=== PATIENT | female | born 1935 | race Caucasian/White ===

== ENCOUNTER 2023-10-28 10:57 | Inpatient (IN) | payer OTHER ==
[2023-10-28] MEDS ORDERED: ONDANSETRON 4 MG/2 ML VIAL ONE (11:31)
[2023-10-28] MEDS ORDERED: NA CHLORIDE 0.9% 1,000 ML ONE (11:32)
[2023-10-28] MEDS ORDERED: MORPHINE 4 MG/ML SYR ONE (11:32)
[2023-10-28 11:48] LABS: Absolute Basophils 0.1 K/uL (0-0.5); Absolute Eosinophils 0.5 K/uL (0-0.5); Absolute Lymphocytes (CBC) 1.1 K/uL (0.7-4.9); Absolute Monocytes 0.8 K/uL (0.1-1.3); Absolute Neutrophil 7.3 K/uL (1.8-8.0); Basophils % 0.7 % (0-1.3); Eosinophils % 5.3 % (0-4.4); Hematocrit 36.8 % (36.0-45.0); Hemoglobin 12.4 g/dL (12.0-15.0); Lymphocytes % 11.1 % (15.3-44.8); MCH 31.7 pg (27.0-35.0); MCHC 33.7 g/dL (32.0-36.0); MCV 94.1 fL (80-100); MPV 7.1 fL (7.6-11.3); Monocytes % 8.3 % (3.3-12.3); Neutrophils % 74.6 % (41.7-73.7); Nucleated Red Blood Cells % 0.1 % (0-0); Platelets 326 thou/uL (152-406); RBC Red Blood Cell Count 3.91 M/uL (3.86-4.86); Red Cell Distribution Width 14.2 % (12.1-15.2)
[2023-10-28 11:56] LABS: Albumin 3.4 g/dL (3.4-5.0); Alkaline Phosphatase 52 U/L (45-117); Anion Gap 9.6 mEq/L (5.0-15.0); BUN Blood Urea Nitrogen 23 mg/dL (7-18); Bicarbonate 27 mEq/L (21-32); Bilirubin Total 0.7 mg/dL (0.2-1.0); Globulin 3.3 g/dL (2.3-3.5); Glomerular Filtration Rate 86 ml/min (=/>90); Glucose Level 118 mg/dL (74-106); Lipase 14 U/L (13-75); Potassium 3.6 mEq/L (3.5-5.1); Protein, Total 6.7 g/dL (6.4-8.2); Sodium Level 138 mEq/L (136-145)
[2023-10-28 12:01] LABS: ALT/SGPT < 14 U/L (13-56); AST/SGOT < 10 U/L (15-37)
[2023-10-28 12:47] LABS: Specific Gravity 1.027 (1.005-1.030); Sqamous Epithelial <5 /HPF (None Seen); Urine Bacteria None Seen /HPF (<20); Urine Bilirubin NEGATIVE (Negative); Urine Blood Negative (Negative); Urine Clarity Clear (Clear); Urine Color Light-Yellow (Yellow); Urine Culture Reflex Order NOT NEEDED; Urine Glucose NEGATIVE (Negative); Urine Ketones NEGATIVE (Negative); Urine Microscopic Reflex YN ORDER UMIC; Urine Mucus Slight /HPF (None Seen); Urine Nitrite NEGATIVE (Negative); Urine Protein NEGATIVE (Negative); Urine RBC None Seen /HPF (None Seen); Urine Urobilinogen Normal (Normal); Urine WBC <5 /HPF (<5)
--- NOTE | 2023-10-28 13:05 | RAD REPORT ---
EXAM DESCRIPTION: CT - Abdomen Pelvis W Contrast - 10/28/2023 12:21 pm CLINICAL HISTORY: ABD PAIN COMPARISON: No comparisons TECHNIQUE: Thin cut axial CT imaging of the abdomen and pelvis was performed following intravenous a dministration of iodinated contrast. Multiplanar reformats were generated and reviewed. All CT scans are performed using dose optimization technique as appropriate and may include automated exposure control or mA/KV adjustment according to patient size. FINDINGS: Moderate right pneumothorax, layering small fluid component. Underlying subsegmental atele ctasis. Mildly displaced right 8th-10th rib fractures. The liver, spleen, adrenal glands, and pancreas show no suspicious findings. Subcapsular right inferi or liver lobe 2 cm hypoattenuating lesion with some marginal enhancement, may represent an atypical c yst or hemangioma. Gallbladder and biliary tree are also without suspicious finding. Prominent calibe r of the main pancreatic duct, measuring up to 5 mm. Symmetric renal function is seen with no hydronephrosis or suspicious renal mass. Multiple left renal cysts, largest at the left interpolar region measuring 2.6 cm. No dilated bowel loops or bowel wall thickening. Colonic diverticulosis. No free air, free fluid or i nflammatory stranding. No hernia, mass or bulky lymphadenopathy. The urinary bladder is without signi ficant finding. No suspicious bony findings. IMPRESSION: Moderate right hemopneumothorax. Mildly displaced right eighth-tenth rib fractures. Prominent caliber of the main pancreatic duct, measuring up to 5 mm, with no clear etiology identifie d. Correlate with pancreatic enzyme and bilirubin levels, and consider additional evaluation via a ga stroenterology consultation. Other incidental findings as above. The findings were communicated to Kwaku Hoskins on 10/28/2023 at 12:56 hours.
--- NOTE | 2023-10-28 14:36 | RAD REPORT ---
EXAM DESCRIPTION: CT - CTHCSPWOC - 10/28/2023 1:40 pm CLINICAL HISTORY: fall COMPARISON: Abdomen Pelvis W Contrast dated 10/28/2023; Thorax Wo Con dated 10/28/2023 TECHNIQUE: Axial thin cut noncontrast CT images of the head were obtained. Axial thin cut noncontrast CT images of the cervical spine were obtained. Multiplanar reformatted images were generated and reviewed. All CT scans are performed using dose optimization technique as appropriate and may include automated exposure control or mA/KV adjustment according to patient size. FINDINGS: CT HEAD WITHOUT CONTRAST: No acute hemorrhage, hydrocephalus or extra-axial collection is identified.No areas of brain edema or midline shift. The paranasal sinuses and mastoids are clear.The calvarium is intact. CT CERVICAL SPINE WITHOUT CONTRAST: No fracture or subluxation. Mild multilevel cervical spine degenerative changes, contributing to mild right neural foraminal narrowing at C4-5. No prevertebral soft tissues swelling is identified. Mode rate pneumothorax at the right apex. IMPRESSION: No acute traumatic intracranial or cervical spine findings. Right apical moderate pneumothorax. Cervical spine degenerative changes as above.
--- NOTE | 2023-10-28 14:47 | RAD REPORT ---
EXAM DESCRIPTION: CT - Thorax Wo Con - 10/28/2023 1:42 pm CLINICAL HISTORY: BLUNT CHEST TRAUMA COMPARISON: Head C Spine Mpr Wo Con dated 10/28/2023; Abdomen Pelvis W Contrast dated 10/28/2023 TECHNIQUE: Axial thin cut images of the chest were obtained without IV contrast. Multiplanar reforma ts were generated and reviewed. All CT scans are performed using dose optimization technique as appropriate and may include automated exposure control or mA/KV adjustment according to patient size. FINDINGS: Subsegmental dependent atelectasis in throughout the 3 right lung lobes. No mass or infilt rate in the lung parenchyma. Moderate right pneumothorax. Layering right effusion or pneumothorax com ponent. Trace pericardial effusion. No abnormal mediastinal or hilar masses or lymphadenopathy seen. No signi ficant aortic or pulmonary artery findings. Assessment is limited in the absence of IV contrast. No chest wall mass or abnormal axillary lymphadenopathy. Evaluation of the solid abdominal structures reveals no suspicious findings. Displaced right 8-10 rib fractures. The ninth rib demonstrates 2 fractures along posterior and latera l aspects. IMPRESSION: Displaced right 8-10 rib fractures. The ninth rib demonstrates 2 fractures along posteri or and lateral aspects. Moderate right pneumothorax. Layering right effusion or pneumothorax component. Trace pericardial effusion.
--- NOTE | 2023-10-28 15:03 | ER ---
Nurse's Notes [facility] Name: Latonya Ramirez Age: 88 yrs Sex: Female : 1935 Arrival Date: 10/28/2023 Time: 10:57 Bed 5 Private MD: Diagnosis: Other pneumothorax;Multiple fractures of ribs, right side Presentation: 10/27 11:17 Chief complaint: EMS states: toned out to patient home for fall 1 night ago - pain to ld1 RUQ, right elbow scratch. Denies blood thinners. Negative LOC. Coronavirus screen: At this time, the client does not indicate any symptoms associated with coronavirus-19. Ebola Screen: No symptoms or risks identified at this time. Initial Sepsis Screen: Does the patient meet any 2 criteria? No. Patient's initial sepsis screen is negative. Does the patient have a suspected source of infection? No. Patient's initial sepsis screen is negative. Risk Assessment: Do you want to hurt yourself or someone else? Patient reports no desire to harm self or others. Onset of symptoms was October 28, 2023. 11:17 Method Of Arrival: EMS: [facility] ld1 11:17 Acuity: FLORIAN 3 ld1 Triage Assessment: 11:18 General: Appears in no apparent distress. comfortable, Behavior is calm, cooperative, ld1 appropriate for age. Pain: Complains of pain in right upper quadrant Pain does not radiate. Pain currently is 8 out of 10 on a pain scale. Quality of pain is described as throbbing, Pain began suddenly, Is continuous. EENT: No signs and/or symptoms were reported regarding the EENT system. Neuro: Level of Consciousness is awake, alert, obeys commands, Oriented to person, place, time, situation, Appropriate for age. Cardiovascular: Capillary refill < 3 seconds Patient's skin is warm and dry. Respiratory: Airway is patent Respiratory effort is even, unlabored. GI: Abdomen is round non-distended, Reports upper abdominal pain. : No signs and/or symptoms were reported regarding the genitourinary system. Derm: No signs and/or symptoms reported regarding the dermatologic system. Musculoskeletal: No signs and/or symptoms reported regarding the musculoskeletal system. Historical: - Allergies: 11:18 No Known Allergies; ld1 - PMHx: 11:18 Hypertensive disorder; CVA; HLD; ld1 - Immunization history:: Adult Immunizations up to date. - Infectious Disease History:: Denies. - Social history:: Smoking status: Patient denies any tobacco usage or history of. Screenin:19 [facility] ED Fall Risk Assessment (Adult) History of falling in the last 3 months, ld1 including since admission Yes- single mechanical fall (1 pt) Confusion or Disorientation No (0 pts) Intoxicated or Sedated No (0 pts) Impaired Gait No (0 pts) Mobility Assist Device Used No (0 pt) Altered Elimination No (0 pt) Score/Fall Risk Level 0 - 2 = Low Risk Oriented to surroundings, Maintained a safe environment, Educated pt \T\ family on fall prevention, incl call for assistance when getting out of bed, Assessed \T\ reinforced patient's understanding of fall precautions, Provided non-skid footwear, Hourly rounding (assess needs \T\ fall precautionary measures) done, Used ambulatory aids as needed (educated on \T\ assisted with), Used gait belt as appropriate. Abuse screen: Denies threats or abuse. Denies injuries from another. Nutritional screening: No deficits noted. Tuberculosis screening: No symptoms or risk factors identified. Assessment: 11:19 Reassessment: See triage assessment. ld1 13:10 Reassessment: Patient appears in no apparent distress at this time. No changes from ld1 previously documented assessment. Patient and/or family updated on plan of care and expected duration. Pain level reassessed. 14:00 Reassessment: Patient appears in no apparent distress at this time. No changes from ld1 previously documented assessment. Patient and/or family updated on plan of care and expected duration. Pain level reassessed. 15:00 Reassessment: Patient appears in no apparent distress at this time. No changes from ld1 previously documented assessment. 16:15 Reassessment: Patient appears in no apparent distress at this time. Patient and/or ld1 family updated on plan of care and expected duration. Pain level reassessed. 16:43 Reassessment: Patient appears in no apparent distress at this time. No changes from ld1 previously documented assessment. Patient and/or family updated on plan of care and expected duration. Pain level reassessed. Vital Signs: 11:17 BP 171 / 76; Pulse 77; Resp 18; Temp 97.8(TE); Pulse Ox 92% on R/A; Weight 51.26 kg; ld1 Height 5 ft. 3 in. ; Pain 8/10; 11:29 BP 143 / 82; Pulse 73; Resp 18; Pulse Ox 93% on R/A; ld1 13:10 BP 148 / 57; Pulse 60; Resp 18; Pulse Ox 100% on R/A; ld1 14:45 Pulse 68; Resp 18; Pulse Ox 100% on R/A; ld1 15:30 BP 142 / 79; Pulse 65; Resp 18; Pulse Ox 99% on 10 lpm Non-rebreather mask; ld1 16:40 BP 149 / 72; Pulse 72; Resp 18; Pulse Ox 99% on 10 lpm Non-rebreather mask; ld1 11:17 Body Mass Index 20.02 (51.26 kg, 160.02 cm) ld1 11:17 Pain Scale: Adult ld1 ED Course: 11:05 Patient arrived in ED. eb 11:08 Beatriz Thao PA-C is PHCP. sb4 11:08 Kwaku Hoskins MD is Attending Physician. sb4 11:17 Nidhi Pelaez RN is Primary Nurse. ld1 11:18 Triage completed. ld1 11:18 Arm band placed on right wrist. ld1 11:19 Patient has correct armband on for positive identification. Placed in gown. Bed in low ld1 position. Call light in reach. Side rails up X2. color television console monitor on. Pulse ox on. NIBP on. Door closed. Noise minimized. Warm blanket given. 11:19 No provider procedures requiring assistance completed. ld1 11:29 Inserted saline lock: 20 gauge in right wrist, using aseptic technique. Blood collected.ld1 11:37 CBC with Diff Sent. ld1 11:37 CMP Sent. ld1 11:37 Lipase Sent. ld1 12:23 CT Abd/Pelvis - IV Contrast Only In Process Unspecified. EDMS 13:42 Head C Spine MPR Wo Con CT In Process Unspecified. EDMS 13:[address] In Process Unspecified. EDMS 15:01 Yonny Buchanan is Hospitalizing Provider. sb4 15:41 Chest Single View XRAY In Process Unspecified. EDMS 16:45 Patient admitted, IV remains in place. ld1 Administered Medications: 11:37 Drug: NS 0.9% IV 1000 ml IV at 1 bolus Per protocol; 1000 mL bolus Route: IV; Rate: 1 ld1 bolus; Site: right forearm; 11:37 Drug: morphine IVP or IV 4 mg IVP once over 4 mins Route: IVP; Infused Over: 4 mins; ld1 Site: right forearm; 11:37 Drug: Ondansetron IVP 4 mg IVP once; over 2 minutes Route: IVP; Site: right forearm; ld1 Medication: 16:46 VIS not applicable for this client. ld1 Outcome: 15:02 Decision to Hospitalize by Provider. sb4 16:45 Admitted to ICU accompanied by nurse, via stretcher, room 1, Report called to renetta Concepcion RN 16:45 Condition: stable 16:45 Instructed on the need for admit, 16:46 Patient left the ED. [email or web address] Signatures: Dispatcher [employer] EDMonse Dominique Lauren, RN RN ld1 Beatriz Thao PA-C PA-C sb4
--- NOTE | 2023-10-28 15:03 | EDPHYS ---
Physician Documentation [facility] Name: Latonya Ramirez Age: 88 yrs Sex: Female : 1935 Arrival Date: 10/28/2023 Time: 10:57 Bed 5 Private MD: ED Physician Kwaku Hoskins HPI: 10/27 11:21 This 88 yrs old Female presents to ER via EMS with complaints of Abdominal Pain. sb4 11:21 The patient presents with abdominal pain in the right upper quadrant. Onset: The sb4 symptoms/episode began/occurred yesterday. The symptoms do not radiate. Associated signs and symptoms: none. The patient has not experienced similar symptoms in the past. The patient has not recently seen a physician. 11:21 patient reports pain in her RUQ/ right abdomen that began last night. daughter states sb4 that she did fall yesterday and scraped her elbow and gusman but doesn't think she hurt her side. denies any fever, n/v/d. Historical: - Allergies: 11:18 No Known Allergies; ld1 - PMHx: 11:18 Hypertensive disorder; CVA; HLD; ld1 - Immunization history:: Adult Immunizations up to date. - Infectious Disease History:: Denies. - Social history:: Smoking status: Patient denies any tobacco usage or history of. ROS: 11:21 Constitutional: Negative for fever, chills, and weight loss, sb4 11:21 Abdomen/GI: Positive for abdominal pain, 11:21 All other systems are negative, Exam: 11:22 Head/Face: Normocephalic, atraumatic. Eyes: Extra-ocular motions intact. Periorbital sb4 areas with no swelling, redness, or edema. Cardiovascular: Regular rate and rhythm with a normal S1 and S2. Respiratory: Lungs have equal breath sounds bilaterally, clear to auscultation and percussion. No rales, rhonchi or wheezes noted. No increased work of breathing, no retractions or nasal flaring. 11:22 Constitutional: The patient appears in no acute distress, alert, awake, 11:22 Abdomen/GI: Inspection: abdomen appears normal, Palpation: soft, mild abdominal tenderness, in the right upper quadrant and right lower quadrant, 11:22 Skin: injury, skin tear right elbow, Vital Signs: 11:17 BP 171 / 76; Pulse 77; Resp 18; Temp 97.8(TE); Pulse Ox 92% on R/A; Weight 51.26 kg; ld1 Height 5 ft. 3 in. ; Pain 8/10; 11:29 BP 143 / 82; Pulse 73; Resp 18; Pulse Ox 93% on R/A; ld1 13:10 BP 148 / 57; Pulse 60; Resp 18; Pulse Ox 100% on R/A; ld1 14:45 Pulse 68; Resp 18; Pulse Ox 100% on R/A; ld1 15:30 BP 142 / 79; Pulse 65; Resp 18; Pulse Ox 99% on 10 lpm Non-rebreather mask; ld1 16:40 BP 149 / 72; Pulse 72; Resp 18; Pulse Ox 99% on 10 lpm Non-rebreather mask; ld1 11:17 Body Mass Index 20.02 (51.26 kg, 160.02 cm) ld1 11:17 Pain Scale: Adult ld1 MDM: 11:08 Patient medically screened. sb4 15:01 Data reviewed: vital signs, nurses notes, EMS record, lab test result(s), EKG, sb4 radiologic studies, I have discussed the patient's presentation/case with the attending Emergency Department Physician; and as a result, I will admit patient. Consideration of Admission/Observation Patient was admitted/placed on observation. Management of patient was discussed with the following: Digital Sales Executive: Dr. Yates, agrees to consult. Historians other than the Patient: Daughter/Son: daughter. Counseling: I had a detailed discussion with the patient and/or guardian regarding the historical points, exam findings, and any diagnostic results supporting the discharge/admit diagnosis, lab results, radiology results, the need for further work-up and treatment in the hospital. 10/27 11:15 Order name: CBC with Diff; Complete Time: 11:50 4 10/27 11:15 Order name: CMP; Complete Time: 12:02 sb4 10/27 11:15 Order name: Lipase; Complete Time: 12:02 sb4 10/27 11:15 Order name: Urinalysis w/ reflexes; Complete Time: 12:47 sb4 10/27 11:15 Order name: CT Abd/Pelvis - IV Contrast Only; Complete Time: 13:08 sb4 10/27 12:56 Order name: Head C Spine MPR Wo Con CT; Complete Time: 14:37 sb4 10/27 12:56 Order name: Chest Wo Con CT; Complete Time: 14:49 sb4 10/27 14:57 Order name: Chest Single View XRAY; Complete Time: 16:22 sb4 10/27 15:41 Order name: Chest Single View EDMS 10/27 11:15 Order name: IV Saline Lock; Complete Time: 11:29 sb4 10/27 11:15 Order name: Labs collected and sent; Complete Time: 11:29 sb4 Administered Medications: 11:37 Drug: NS 0.9% IV 1000 ml IV at 1 bolus Per protocol; 1000 mL bolus Route: IV; Rate: 1 ld1 bolus; Site: right forearm; 11:37 Drug: morphine IVP or IV 4 mg IVP once over 4 mins Route: IVP; Infused Over: 4 mins; ld1 Site: right forearm; 11:37 Drug: Ondansetron IVP 4 mg IVP once; over 2 minutes Route: IVP; Site: right forearm; ld1 Disposition: 18:08 Co-signature as Attending Physician, Kwaku Hoskins MD I reviewed the patient's care rn provided by the Advanced Practice Provider and agree with the diagnosis and treatment plan. Disposition Summary: 10/28/23 15:02 Hospitalization Ordered Notes: Hospitalization Status: Inpatient Admission sb4 Provider: Yonny Buchanan Location: Intensive Care Unit sb4 Condition: Fair sb4 Problem: new sb4 Symptoms: are unchanged sb4 Bed/Room Type: Standard sb4 Room Assignment: 1-(10/28/23 16:04) eb Diagnosis - Other pneumothorax sb4 - Multiple fractures of ribs, right side sb4 Forms: - Medication Reconciliation Form sb4 - SBAR form sb4 - Leadership Thank You Letter sb4 Critical care time excluding procedures: 15:12 Critical care time: Bedside Care: 15 minutes, Consultation: 15 minutes, Family sb4 Intervention: 5 minutes. Total time: 35 minutes Signatures: Dispatcher [employer] Kwaku Hammond MD MD rn Botello, Elizabeth eb Sims, Lauren, RN RN ld1 Beatriz Thao PA-C PADrew sb4 Corrections: (The following items were deleted from the chart) 16:04 15:02 sb4 eb
--- NOTE | 2023-10-28 15:53 | P.HP ---
Certification for Inpatient Patient admitted to: Inpatient With expected LOS: >2 Midnights Patient will require the following post-hospital care: None Practitioner: I am a practitioner with admitting privileges, knowledge of patient current condition, hospital course, and medical plan of care. 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 Sometime on the night of the patient apparently had fallen out of bed, on the morning the her daughter came to check on her and found her lying in the bed with blood on the bed and her right elbow. Throughout the day she complained of right-sided flank pain but declined going to the hospital at that time. Her pain worsened in severity and for that reason he came to the hospital, she denies any difficulty breathing whatsoever. Patient was evaluated in the emergency department her labs were unremarkable, CT of the chest showed displaced right 8 through 10 rib fractures. The ninth rib demonstrates 2 fractures along the posterior and lateral aspects. Moderate right pneumothorax. Layering right effusion or pneumothorax component, trace pericardial effusion. Patient was breathing well on room air satting in the high 90s to 100%, general surgery was consulted and as patient has no difficulty breathing her sats are within normal limits plan is for conservative measures, admission to ICU with nonrebreather and serial chest x-rays. Patient/family unsure what led to the fall overnight on that night, small abrasion noted to right elbow as well. Patient be admitted to the ICU for pneumothorax, rib fractures. Discussed CODE STATUS at length, patient would not want resuscitation but she is okay with chest tubes and intubation in an bartolome gency related to her pneumothorax. - Past Medical/Surgical History -: CVA affecting left eye -: Hypertension -: Hypothyroidism -: RLS/insomnia -: Anxiety -: Asthma -: Bilateral mastectomy Psychosocial/ Personal History: Patient and her live at home with her daughter - Family History Mother -: Heart disease, Hypertension, Cancer - Social History Smoking Status: Former smoker Alcohol use: No CD- Drugs: No Caffeine use: No Place of Residence: Home Review of Systems 10-point ROS is otherwise unremarkable Cardiovascular: Chest Pain Gastrointestinal: Abdominal Pain Physical Examination - Physical Exam General: Alert, In no apparent distress, Oriented x3 HEENT: Atraumatic, PERRLA, EOMI Neck: Supple, 2+ carotid pulse no bruit, No LAD Respiratory: Normal air movement, Diminished (Right-sided) Cardiovascular: Regular rate/rhythm, Normal S1 S2 Gastrointestinal: Normal bowel sounds, No tenderness Musculoskeletal: No tenderness Integumentary: No rashes, Other (Skin tear noted to right elbow) Neurological: Normal gait, Normal speech, Normal strength at 5/5 x4 extr, Normal tone, Normal affect - Studies Laboratory Data (last 24 hrs) 10/28/23 10/28/23 11:27 11:27 WBC 9.80 Hgb 12.4 Hct 36.8 Plt Count 326 Sodium 138 Potassium 3.6 BUN 23 H Creatinine 0.60 Glucose 118 H Total Bilirubin 0.7 AST < 10 L ALT < 14 Alkaline Phosphatase 52 Lipase 14 Assessment and Plan - Plan Assessment: Moderate right pneumothorax Right 8-10 rib fractures Multiple falls Hypertension Hypothyroidism RLS/insomnia Anxiety Plan: Moderate right pneumothorax Right 8-10 rib fractures Patient was satting well on room air, denies any shortness of breath at this time Will hold off on chest tube at this time, serial chest x-rays ordered Case discussed with general surgery, general surgery following Repeat chest x-ray 8 PM and in the morning Continue with nonrebreather for now As needed pain medications Multiple falls Was stabilized from the standpoint of pneumothorax will consult PT Hypertension Hypothyroidism RLS/insomnia Anxiety Continue home medications once verified DVT PPX: Lovenox Code status: DNR-okay with chest tube/intubation Discharge Plan: Home Plan to discharge in: Greater than 2 days - Advance Directives Does patient have a Living Will: Yes Does patient have a Durable POA for Healthcare: No - Code Status/Comfort Care Code Status Assessed: Yes (DNR) Critical Care: No Time Spent Managing Pts Care (In Minutes): 70
[2023-10-28] MEDS ORDERED: ONDANSETRON 4 MG/2 ML VIAL IV PRN (16:10)
[2023-10-28] MEDS ORDERED: ZOLPIDEM TARTRATE 5 MG TABLET PO PRN (16:10)
[2023-10-28] MEDS ORDERED: ACETAMINOPHEN 325 MG TABLET PO PRN (16:10)
--- NOTE | 2023-10-28 16:13 | RAD REPORT ---
EXAM DESCRIPTION: Anya Single View10/28/2023 3:39 pm CLINICAL HISTORY: PNEUMOTHORAX COMPARISON: No comparisons TECHNIQUE: Portable AP view of the chest. FINDINGS: Moderate right pneumothorax, with 3.5 cm apical pleural separation. Bilateral streaky opac ities suggesting atelectasis, more so at the right base. No sizable effusion. The cardiomediastinal c ontours are unremarkable. IMPRESSION: Moderate right pneumothorax as above.
[2023-10-28] MEDS ORDERED: Levofloxacin500mg IV 500 MG/100 ML BAG IV SCH (19:00)
[2023-10-28] MEDS ORDERED: Levofloxacin 750mg IV 750 MG/150 ML BAG IV SCH (19:00)
[2023-10-28] MEDS: MORPHINE 4 MG/ML SYR IV PRN (19:49)
[2023-10-28] MEDS: Levofloxacin500mg IV 500 MG/100 ML BAG IV ONE (19:52)
--- NOTE | 2023-10-28 20:27 | RAD REPORT ---
EXAM DESCRIPTION: RADChest Single View10/28/2023 8:13 pm CLINICAL HISTORY: eval right pneumothorax COMPARISON: Chest Single View dated 10/28/2023 TECHNIQUE: Portable AP view of the chest. FINDINGS: Right moderate pneumothorax, stable in volume. Atelectatic changes bilaterally are stable. No sizable effusion. Right ninth mildly displaced rib fracture is again noted. The cardiomediastinal contours are unremarkable. IMPRESSION: Stable right moderate pneumothorax.
[2023-10-28] MEDS: clonazePAM 0.5 MG TAB PO PRN (20:33)
[2023-10-28] MEDS: GABAPENTIN 100 MG CAP PO SCH (20:33)
[2023-10-28] MEDS: DULERA 100/5 (MOMETASONE/FORMOTEROL) INHALER IH SCH (21:00)
[2023-10-29] MEDS ORDERED: CEFAZOLIN 1 GM in NA CHLORIDE 0.9% 50 ML IVPB SCH (01:00)
[2023-10-29] MEDS: HYDROCODONE/APAP 5/325 MG TAB PO PRN (03:25)
[2023-10-29 06:01] VITALS: BMI 19.2
[2023-10-29 06:58] LABS: Absolute Basophils 0.1 K/uL (0-0.5); Absolute Eosinophils 0.5 K/uL (0-0.5); Absolute Lymphocytes (CBC) 0.9 K/uL (0.7-4.9); Absolute Monocytes 0.9 K/uL (0.1-1.3); Absolute Neutrophil 8.5 K/uL (1.8-8.0); Basophils % 0.6 % (0-1.3); Eosinophils % 4.8 % (0-4.4); Hematocrit 34.3 % (36.0-45.0); Hemoglobin 11.5 g/dL (12.0-15.0); Lymphocytes % 7.9 % (15.3-44.8); MCH 32.1 pg (27.0-35.0); MCHC 33.7 g/dL (32.0-36.0); MCV 95.5 fL (80-100); MPV 7.3 fL (7.6-11.3); Monocytes % 8.3 % (3.3-12.3); Neutrophils % 78.4 % (41.7-73.7); Nucleated Red Blood Cells % 0.4 % (0-0); Platelets 282 thou/uL (152-406); RBC Red Blood Cell Count 3.59 M/uL (3.86-4.86); Red Cell Distribution Width 14.2 % (12.1-15.2)
[2023-10-29 07:25] LABS: Albumin/Globulin Ratio 0.9 (1.1-1.8); Alkaline Phosphatase 49 U/L (45-117); Anion Gap 7.9 mEq/L (5.0-15.0); BUN Blood Urea Nitrogen 21 mg/dL (7-18); Bicarbonate 26 mEq/L (21-32); Bilirubin Total 0.6 mg/dL (0.2-1.0); Globulin 3.2 g/dL (2.3-3.5); Glomerular Filtration Rate 89 ml/min (=/>90); Glucose Level 95 mg/dL (74-106); Potassium 3.9 mEq/L (3.5-5.1); Protein, Total 6.2 g/dL (6.4-8.2); Sodium Level 138 mEq/L (136-145)
[2023-10-29 07:26] LABS: ALT/SGPT < 14 U/L (13-56); AST/SGOT < 10 U/L (15-37)
--- NOTE | 2023-10-29 08:35 | RAD REPORT ---
EXAM DESCRIPTION: RAD - Chest Single View - 10/29/2023 6:38 am CLINICAL HISTORY: Eval right pneumo Chest pain. COMPARISON: Chest Single View dated 10/28/2023; Chest Single View dated 10/28/2023; Thorax Wo Con date d 10/28/2023; Head C Spine Mpr Wo Con dated 10/28/2023 FINDINGS: Portable technique limits examination quality. Moderate right-sided pneumothorax persists, without significant change since 10/28/2023 prior study. Emphysematous changes are present with scarring in the right lung base. The heart is mildly enlarged in size. IMPRESSION: Stable moderate size right-sided pneumothorax since 10/28/2023.
[2023-10-29] MEDS: THYROID 30 MG TAB PO SCH (08:42)
[2023-10-29] MEDS: lisinopriL 20 MG TAB PO SCH (08:43)
[2023-10-29] MEDS: ENOXAPARIN 40 MG/0.4 ML SQ SCH (08:43)
[2023-10-29] MEDS: DULERA 100/5 (MOMETASONE/FORMOTEROL) INHALER IH SCH ×2 (09:00→21:09)
--- NOTE | 2023-10-29 09:40 | P.PN ---
Date of Service: 10/29/23 Subjective: Doing ok, still C/O right flank/rib pain ROS: 10 point ROS as noted above, otherwise negative Physical exam GEN: Alert, oriented, NAD HEENT: Normal conjunctiva, sclera anicteric CV: Regular rate and rhythm, no edema Pulm: Nonlabored respirations on NRB ABD: Soft, nontender, nondistended MSK: No joint tenderness Integumentary: No rashes Neuro: Normal speech, normal affect Vitals reviewed Assessment: Moderate right pneumothorax Right 8-10 rib fractures Multiple falls Hypertension Hypothyroidism RLS/insomnia Anxiety Plan: Moderate right pneumothorax Right 8-10 rib fractures Patient was satting well on room air, denies any shortness of breath at this time Will hold off on chest tube at this time, serial chest x-rays ordered Case discussed with general surgery, general surgery following Daily CXR Continue with nonrebreather for now As needed pain medications Multiple falls Was stabilized from the standpoint of pneumothorax will consult PT Hypertension Hypothyroidism RLS/insomnia Anxiety Continue home medications once verified DVT PPX: Lovenox Code status: DNR-okay with chest tube/intubation Discharge Plan: Home Plan to discharge in: Greater than 2 days Time Spent Managing Pts Care (In Minutes): 35 <Gelacio Page - Last Filed: 10/29/23 09:40> Patient seen and examined. Plan of care discussed Gelacio Page. Case discussed with Dr. Yates. Serial chest x-rays shows stable pneumothorax. Incentive spirometry Cautious analgesics as needed to avoid oversedation. Pulmonary consult. Supplemental oxygen as needed. PT evaluation. <akila austin - Last Filed: 10/29/23 17:20>
[2023-10-29] MEDS: POTASSIUM CL SA 10 MEQ TAB PO ONE (10:09)
--- NOTE | 2023-10-29 15:00 | CON ---
Date of Consultation: 10/29/2023 Reason For Service: Pneumothorax, right side. History Of Present Illness: This is the case of an 88-year-old patient brought by the family member with the chief complaint of fall. This happened about 3 days ago. When the family saw her, the only thing they can see was just the right elbow bruises. Yesterday afternoon, she complained of more pa in, so she was brought to the ER, found to have multiple rib fractures and also a pneumothorax. At t hat moment, she has no shortness of breath and no difficulty breathing. The CAT scan was done. X-ra y was done. There is about 3 rib fractures 8 to 10. No major bruises in that area. Otherwise, she is comfortable. She is oriented x3. She has no other discomfort as long as she just does not move. Surgical consult was obtained. Past Medical History: CVA, hypertension, hypothyroidism, insomnia, anxiety, asthma. Past Surgical History: Include bilateral mastectomy, I am not sure exactly the reason for it, althou gh we suspect probably it was cancer, I have to talk to the daughter to get clarify that. Social History: She does not smoke. She does not drink alcohol. Family History: Includes hypertension, heart disease, and cancer unknown. Physical Examination: Vital Signs: Stable. General: Patient is awake and alert, in no distress. Responding, oriented x3. HEENT: Pupils are equal and reactive. Anicteric. Neck: Supple. No JVD. Chest: Bilateral breath sounds. Tenderness over the 8 to 10 ribs on the right side, but no crepitus , no bruises, no lacerations. No flail chest. Abdomen: Soft and depressible. No guarding or rebound. No peritoneal signs. Pelvis: Stable. Extremities: Full range of motion. Dorsalis pedis pulses present. Radial artery pulses present. Neurologic: Oriented x3. History of CVA. Rectal: Deferred. Breasts: As above. Pelvic: Deferred. Laboratory Data: Blood work: WBC count is 9.8 with the hemoglobin of 12.4, and platelets of 326. S odium is 138, bicarb 27, glucose 118, lipase 14. CAT scan of the abdomen and pelvis, head, C-spine, and chest shows a mildly displaced 8 to 10 right rib fractures, moderate-sized pneumothorax as descri bed by radiologist. Once again, clarification of a hemo was requested, but that is in the conclusion , I believe it is a typo. That was clarified right now. Head and cervical CT shows no acute traumat ic intracranial or cervical spine. Once again, right apical pneumothorax, degenerative changes in th e cervical spine. Assessment: This is an 88-year-old patient about 3 days ago, fell. She does not recall that she had been dizzy. It is just a trip as per person, was brought yesterday, found to have a pneumothorax, b ut no symptoms other than pain on palpation on the rib cage area. Patient informed about the options of observation versus the chest tube. Obviously, she preferred a conservative treatment. Patient w as evaluated again today. We discussed with her few options right now. We put her in the ICU for ob servation and check H and H. She is still with good breathing and bilateral breath sounds. No short ness of breath. No chest pain. Hemoglobin seems to be, as expected, stable, platelets of 288. The x-ray repeated cervical spine shows stable pneumothorax. Plan: We discussed with the patient the risks and benefits of chest tube placement. After discussin g with that, she preferred to continue conservative treatment. She understands that if by any chance clinically or radiographically she deteriorates, the benefits, alternatives, and risks of chest tube placement were explained to the patient which include, but not limited to, infection, bleeding, robert ge to adjacent structures, hemothorax, pneumothorax, empyema, GA, and even . She is stable now in the ICU. There is a plan for transfer to move her to the floor and if they do so, I explained to the staff to even on the floor have the chest tube tray and a chest tube available, in case an emerge ncy triggers, we can do that at bedside without having to be looking around the hospital for the ches t tube and they understood that part. Right now, she has bilateral breath sounds and no JVD. As par t of the treatment, also we can consult a Pulmonary service and get their input from the nontraumatic standpoint how to better approach this without having to put a chest tube per patient's request. We will check with them as soon as they become available tomorrow. WAYNE/AVINASH Voice ID: [id number] Report ID: [id number]
[2023-10-29] MEDS: Levofloxacin 250mg IV 250 MG/50 ML BAG IV SCH (19:13)
[2023-10-29] MEDS ORDERED: DULERA 100/5 (MOMETASONE/FORMOTEROL) INHALER IH SCH (21:00)
--- NOTE | 2023-10-30 07:03 | RAD REPORT ---
EXAM DESCRIPTION: RAD - Chest Single View - 10/30/2023 6:14 am CLINICAL HISTORY: Eval right pneumo COMPARISON: Chest Single View dated 10/29/2023; Chest Single View dated 10/28/2023; Chest Single View dated 10/28/2023; Thorax Wo Con dated 10/28/2023 FINDINGS: Lines: None. Lungs: Scarring in the right and left mid lung. No focal airspace disease. Pleural: Decrease in size of the right-sided pneumothorax which is small to moderate. Cardiac: The heart size is within normal limits. Mediastinum: Within normal limits. Bones: Right-sided rib fractures better demonstrated on CT. Other: None IMPRESSION: Mild decrease in size of the now small to moderate right-sided pneumothorax.
[2023-10-30 08:31] LABS: Absolute Eosinophils 0.1 K/uL (0-0.5); Absolute Lymphocytes (CBC) 0.7 K/uL (0.7-4.9); Absolute Monocytes 0.7 K/uL (0.1-1.3); Absolute Neutrophil 7.3 K/uL (1.8-8.0); Basophils % 0.2 % (0-1.3); Eosinophils % 1.5 % (0-4.4); Hematocrit 37.2 % (36.0-45.0); Hemoglobin 12.5 g/dL (12.0-15.0); Lymphocytes % 7.4 % (15.3-44.8); MCH 31.9 pg (27.0-35.0); MCHC 33.6 g/dL (32.0-36.0); MPV 7.4 fL (7.6-11.3); Monocytes % 8.2 % (3.3-12.3); Neutrophils % 82.7 % (41.7-73.7); Platelets 317 thou/uL (152-406); RBC Red Blood Cell Count 3.91 M/uL (3.86-4.86); Red Cell Distribution Width 13.6 % (12.1-15.2)
[2023-10-30 08:51] LABS: Albumin 3.1 g/dL (3.4-5.0); Albumin/Globulin Ratio 0.9 (1.1-1.8); Alkaline Phosphatase 60 U/L (45-117); BUN Blood Urea Nitrogen 16 mg/dL (7-18); Bicarbonate 27 mEq/L (21-32); Bilirubin Total 0.9 mg/dL (0.2-1.0); Globulin 3.5 g/dL (2.3-3.5); Glomerular Filtration Rate 92 ml/min (=/>90); Glucose Level 122 mg/dL (74-106); Protein, Total 6.6 g/dL (6.4-8.2); Sodium Level 136 mEq/L (136-145)
[2023-10-30 08:53] LABS: ALT/SGPT < 14 U/L (13-56); AST/SGOT < 10 U/L (15-37)
--- NOTE | 2023-10-30 10:33 | P.PN ---
Date of Service: 10/30/23 Subjective: Doing ok, still C/O right flank/rib pain Feels pain meds are helping ROS: 10 point ROS as noted above, otherwise negative Physical exam GEN: Alert, oriented, NAD HEENT: Normal conjunctiva, sclera anicteric CV: Regular rate and rhythm, no edema Pulm: Nonlabored respirations on NC at 2L ABD: Soft, nontender, nondistended MSK: No joint tenderness Integumentary: No rashes Neuro: Normal speech, normal affect Vitals reviewed Assessment: Moderate right pneumothorax Right 8-10 rib fractures Multiple falls Hypertension Hypothyroidism RLS/insomnia Anxiety Plan: Moderate right pneumothorax Right 8-10 rib fractures Patient was satting well on room air, denies any shortness of breath at this time CXR shows some improvement in pneumothorax, now mild-mod Case discussed with general surgery, general surgery following as well as pulm Daily CXR Continue with NC at 2L for now As needed pain medications Multiple falls PT consulted/eval today Hypertension Hypothyroidism RLS/insomnia Anxiety Continue home medications once verified DVT PPX: Lovenox Code status: DNR-okay with chest tube/intubation Discharge Plan: Home Plan to discharge in: Greater than 2 days Time Spent Managing Pts Care (In Minutes): 35 <Gelacio Page - Last Filed: 10/30/23 10:31> Patient seen and evaluated with Gelacio Page. She denies chest pain at rest. She is stable on 2 L of oxygen by nasal cannula. Repeat chest x-ray shows improvement in right-sided pneumothorax. Pulmonary Dr. Bennett and surgery Dr. Yates input appreciated. Continue conservative management. Analgesics as needed. Continue PT. Patient prefers to go home with home health. <akila austin - Last Filed: 10/30/23 15:56>
--- NOTE | 2023-10-30 11:18 | P.PN ---
Subjective Date of Service: 10/30/23 Chief Complaint: Pneumothorax, rib fractures Subjective: Tolerating diet, Improving Review of Systems Respiratory: Other (No SOB) Physical Examination - Vital Signs Temperature: 99.6 F Blood Pressure: 171/75 Pulse: 107 Respirations: 19 Pulse Ox (%): 93 - Physical Exam General: Alert, In no apparent distress, Oriented x3, Cooperative HEENT: PERRLA Neck: Supple Respiratory: Other (bilateral breath sounds) Cardiovascular: No edema Gastrointestinal: Soft and benign Neurological: Normal speech - Studies Imagings Data: CXR reviewed with patient. Assessment And Plan - Plan continue conservative treatment and pain control
--- NOTE | 2023-10-30 11:21 | P.PN ---
Subjective Date of Service: 10/29/23 Chief Complaint: Pneumothorax, rib fractures Subjective: Tolerating diet, Improving Review of Systems Cardiovascular: Other (no sob) Gastrointestinal: Unremarkable Physical Examination - Vital Signs Temperature: 99.6 F Blood Pressure: 171/75 Pulse: 107 Respirations: 19 Pulse Ox (%): 93 - Physical Exam General: Alert, In no apparent distress, Oriented x3, Cooperative Respiratory: Clear to auscultation bilaterally (no crepitus) Cardiovascular: No edema Assessment And Plan - Plan cxr in am IS continue conservative treatment [place]
--- NOTE | 2023-10-30 12:04 | P.CNS ---
Date of Consult: 10/30/23 Reason for Consult: Right-sided pneumothorax Chief Complaint: Pneumothorax, rib fractures History of Present Illness: Patient is 88 years of age with a history of stroke hypertension admitted to the emergency room apparently she fallen out of bed has some fractures on the right side including a mild pneumothorax she is currently doing better with conservative therapy and has been reexpansion of her lung she denies any chest pain or shortness of breath Patient refused chest tube Allergies No Known Allergies Allergy (Unverified 10/28/23 16:10) Home Medications: Fluticasone Propion/Salmeterol [Fluticasone-Salmeterol 100-50] 1 puff IH BID 10/28/23 Gabapentin [Neurontin*] 100 mg PO BEDTIME 10/28/23 Lisinopril [Zestril] 40 mg PO DAILY 10/28/23 Thyroid Tab [[place] Thyroid*] 45 mg PO DAILY 10/28/23 Zolpidem Tartrate [Ambien*] 10 mg PO BEDTIME PRN 10/28/23 clonazePAM [Klonopin*] 0.5 mg PO DAILY PRN 10/28/23 - Past Medical/Surgical History Diabetic: No -: CVA affecting left eye -: Hypertension -: Hypothyroidism -: RLS/insomnia -: Anxiety -: Asthma -: Bilateral mastectomy -: Right eye surgery x8 Psychosocial/ Personal History: Patient and her live at home with her daughter - Family History Mother Medical History: Heart disease, Hypertension, Cancer - Social History Alcohol use: Yes CD- Drugs: No Caffeine use: Yes Place of Residence: Home Review of Systems General: Weakness Respiratory: Shortness of Breath Cardiovascular: Chest Pain Physical Examination Temp Pulse Resp BP Pulse Ox 99.6 F 107 H 19 171/75 H 93 10/30/23 11:20 10/30/23 11:20 10/30/23 11:20 10/30/23 11:20 10/30/23 11:20 General: Alert, In no apparent distress, Oriented x3 Respiratory: Diminished Cardiovascular: No edema, Regular rate/rhythm, Normal S1 S2 - Problems (1) Pneumothorax on right Current Visit: Yes Status: Acute Plan: Patient is 88 years of age has developed a secondary pneumothorax patient had fallen and sustained some rib fractures patient is doing better pneumothorax is improving plan to ambulate patient start patient on 100% nonrebreather she refused a chest tube labs oxygenation satisfactory CT scan chest x-ray reviewed continue to monitor if there is been a decrease again and when pneumothorax may be able to go home patient to avoid any strenuous activity follow-up with me in 2 weeks
[2023-10-30] MEDS: NIFEDIPINE XL 60 MG TABLET PO SCH (17:04)
--- NOTE | 2023-10-31 07:19 | RAD REPORT ---
EXAM DESCRIPTION: RAD - Chest Single View - 10/31/2023 5:30 am CLINICAL HISTORY: penumothorax COMPARISON: Chest Single View dated 10/30/2023; Chest Single View dated 10/29/2023; Chest Single View d ated 10/28/2023; Chest Single View dated 10/28/2023 FINDINGS: Lines: None. Lungs: Scarring architectural distortion at the right lung base. Left mid lung linear opacity is unch anged. Pleural: Pneumothorax has slightly decreased in size and is non-small measuring 4 millimeters in maxi mal thickness. Cardiac: The heart size is within normal limits. Mediastinum: Within normal limits. Bones: No acute fractures. Other: None IMPRESSION: Continued decrease in size of a now a small right-sided pneumothorax.
[2023-10-31 09:18] VITALS: O2SAT 91
[2023-10-31 10:45] LABS: Absolute Basophils 0.1 K/uL (0-0.5); Absolute Eosinophils 0.5 K/uL (0-0.5); Absolute Monocytes 1.4 K/uL (0.1-1.3); Absolute Neutrophil 10.1 K/uL (1.8-8.0); Basophils % 0.8 % (0-1.3); Eosinophils % 3.5 % (0-4.4); Hematocrit 41.3 % (36.0-45.0); Hemoglobin 13.9 g/dL (12.0-15.0); Lymphocytes % 14.3 % (15.3-44.8); MCH 31.7 pg (27.0-35.0); MCHC 33.6 g/dL (32.0-36.0); MCV 94.4 fL (80-100); MPV 7.8 fL (7.6-11.3); Monocytes % 9.9 % (3.3-12.3); Neutrophils % 71.5 % (41.7-73.7); Nucleated Red Blood Cells % 0.1 % (0-0); Platelets 281 thou/uL (152-406); RBC Red Blood Cell Count 4.38 M/uL (3.86-4.86); Red Cell Distribution Width 13.7 % (12.1-15.2)
[2023-10-31 11:07] LABS: Albumin 3.3 g/dL (3.4-5.0); Albumin/Globulin Ratio 0.8 (1.1-1.8); Anion Gap 8.4 mEq/L (5.0-15.0); Bilirubin Total 0.9 mg/dL (0.2-1.0); Globulin 4.4 g/dL (2.3-3.5); Potassium 3.4 mEq/L (3.5-5.1); Protein, Total 7.7 g/dL (6.4-8.2)
[2023-10-31] MEDS: POTASSIUM 25 MEQ EFFERV TAB PO ONE (11:38)
[2023-10-31 11:56] LABS: Blood Morphology Comment NOT SEEN (NOT SEEN); Platelet Estimate ADEQ; White Blood Cell Scan OK (OK)
--- NOTE | 2023-10-31 12:21 | P.PN ---
Subjective Date of Service: 10/31/23 Chief Complaint: Pneumothorax, rib fractures Subjective: Improving (Patient is improving doing well denies any chest pain shortness of breath) Review of Systems 10-point ROS is otherwise unremarkable General: Weakness Physical Examination - Vital Signs Temperature: 97.6 F Blood Pressure: 135/63 Pulse: 82 Respirations: 22 Pulse Ox (%): 93 - Physical Exam General: Alert, In no apparent distress, Oriented x3 Respiratory: Clear to auscultation bilaterally Cardiovascular: No edema, Regular rate/rhythm, Normal S1 S2 Gastrointestinal: Normal bowel sounds, Soft and benign Assessment And Plan - Current Problems (Diagnosis) (1) Pneumothorax on right Current Visit: Yes Status: Acute Plan: Patient is 88 years of age admitted with right-sided traumatic pneumothorax is currently doing better pneumothorax is improving his vital signs oxygenation stable plan to ambulate discharge chemistries reviewed white count is mildly elevated doubt infection chart follow-up with me in 2 weeks antibiotics not necessary
[2023-10-31 12:31] VITALS: BP 135/63; TEMP 97.6
--- NOTE | 2023-10-31 13:46 | P.DS ---
Admission Date: 10/28/23 Discharge Date: 10/31/23 Disposition: DC HOME/HOME HEALTH CARE Discharge Condition: GOOD Reason for Admission: Pneumothorax, rib fractures Consultations: General surgeryDr. Yates PulmonologyDr. Bennett Brief History of Present Illness: 88-year-old female with history of previous CVA affecting her left eye, hypertension, hypothyroidism, RLS/insomnia, anxiety presented to the emergency department chief complaint of fall injury, right-sided flank/abdominal pain. Sometime on the night of the patient apparently had fallen out of bed, on the morning the her daughter came to check on her and found her lying in the bed with blood on the bed and her right elbow. Throughout the day she complained of right-sided flank pain but declined going to the hospital at that time. Her pain worsened in severity and for that reason he came to the hospital, she denies any difficulty breathing whatsoever. Patient was evaluated in the emergency department her labs were unremarkable, CT of the chest showed displaced right 8 through 10 rib fractures. The ninth rib demonstrates 2 fractures along the posterior and lateral aspects. Moderate right pneumothorax. Layering right effusion or pneumothorax component, trace pericardial effusion. Patient was breathing well on room air satting in the high 90s to 100%, general surgery was consulted and as patient has no difficulty breathing her sats are within normal limits plan is for conservative measures, admission to ICU with nonrebreather and serial chest x-rays. Patient/family unsure what led to the fall overnight on that night, small abrasion noted to right elbow as well. Patient be admitted to the ICU for pneumothorax, rib fractures. Discussed CODE STATUS at length, patient would not want resuscitation but she is okay with chest tubes and intubation in an emergency related to her pneumothorax. Hospital Course: Assessment: Moderate right pneumothorax Right 8-10 rib fractures Multiple falls Hypertension Hypothyroidism RLS/insomnia Anxiety Patient was admitted to the hospital for a moderate right-sided pneumothorax along with rib fractures of ribs 8 through 10 posteriolaterally. The injury had occurred around 36 hours prior to presentation to the hospital and patient did not have any dyspnea or hypoxia associated with the moderate right pneumothorax. Case was discussed with general surgery and patient/family and decision was made to treat her conservatively, serial chest x-rays were obtained which showed significant improvement in the right-sided pneumothorax which is now small, patient is breathing well on room air. She has been tolerating oral pain medications for the rib fractures. Patient was evaluated by physical therapy and found to be quite weak requiring max assist, this was discussed with family/daughter and she believes patient will be better served at home where she has a small animal caretaker 21/11, home health and physical therapy have had been arranged for home care. Prior to discharge Case discussed with pulmonology, recommend follow-up in 2 weeks with pulmonology outpatient. Avoid strenuous activity. Please follow-up with Dr. Bennett in 1 to 2 weeks Please also follow-up with your primary care doctor Continue taking your home medications as previously prescribed Prescription for [place] 5 mg for pain has been sent to pharmacy [facility] in [place] continued use of incentive telemetry Home Health: [facility] ([facility]) P:[phone] F:[phone] PCP appointment: Monday11/10/[address] Dolores Wagner [address], [place] [address] Vital Signs/Physical Exam: Temp Pulse Resp BP Pulse Ox 97.6 F 82 22 H 135/63 93 10/31/23 12:21 10/31/23 12:21 10/31/23 12:21 10/31/23 12:21 10/31/23 12:21 General: Alert, In no apparent distress, Oriented x2 HEENT: Atraumatic, PERRLA Neck: Supple, JVD not distended Respiratory: Clear to auscultation bilaterally, Normal air movement Cardiovascular: Regular rate/rhythm, Normal S1 S2 Gastrointestinal: Normal bowel sounds, No tenderness Musculoskeletal: No tenderness Integumentary: Skin breakdown (Skin tear to right elbow with dressing in place) Neurological: Normal speech, Normal tone Laboratory Data at Discharge: WBC 14.10 thou/uL (4.3-10.9) H 10/31/23 10:23 Hgb 13.9 g/dL (12.0-15.0) D 10/31/23 10:23 Hct 41.3 % (36.0-45.0) 10/31/23 10:23 Plt Count 281 thou/uL (152-406) 10/31/23 10:23 Sodium 136 mEq/L (136-145) 10/31/23 10:27 Potassium 3.4 mEq/L (3.5-5.1) L D 10/31/23 10:27 BUN 20 mg/dL (7-18) H 10/31/23 10:27 Creatinine 0.62 mg/dL (0.55-1.02) 10/31/23 10:27 Glucose 132 mg/dL (74-106) H 10/31/23 10:27 Total Bilirubin 0.9 mg/dL (0.2-1.0) 10/31/23 10:27 AST 12 U/L (15-37) L 10/31/23 10:27 ALT 15 U/L (13-56) 10/31/23 10:27 Alkaline Phosphatase 84 U/L (45-117) D 10/31/23 10:27 Lipase 14 U/L (13-75) 10/28/23 11:27 Home Medications: Fluticasone Propion/Salmeterol [Fluticasone-Salmeterol 100-50] 1 puff IH BID 10/28/23 Gabapentin [Neurontin*] 100 mg PO BEDTIME 10/28/23 Lisinopril [Zestril] 40 mg PO BEDTIME 10/28/23 Thyroid Tab [[place] Thyroid*] 45 mg PO DAILY 10/28/23 Zolpidem Tartrate [Ambien*] 10 mg PO BEDTIME PRN 10/28/23 clonazePAM [Klonopin*] 0.5 mg PO DAILY PRN 10/28/23 Nifedipine Xl [Procardia XL*] 60 mg PO DAILY 10/30/23 Hydrocodone 5/APAP 325 [[place] 5/325*] 1 tab PO Q6H PRN #15 tab 10/31/23 levoFLOXacin [Levofloxacin] 500 mg PO DAILY #5 tab 10/31/23 New Medications: levoFLOXacin [Levofloxacin] 500 mg PO DAILY #5 tab Hydrocodone 5/APAP 325 [[place] 5/325*] 1 tab PO Q6H PRN #15 tab PRN Reason: Pain Physician Discharge Instructions: Patient was admitted to the hospital for a moderate right-sided pneumothorax along with rib fractures of ribs 8 through 10 posteriolaterally. The injury had occurred around 36 hours prior to presentation to the hospital and patient did not have any dyspnea or hypoxia associated with the moderate right pneumothorax. Case was discussed with general surgery and patient/family and decision was made to treat her conservatively, serial chest x-rays were obtained which showed significant improvement in the right-sided pneumothorax which is now small, patient is breathing well on room air. She has been tolerating oral pain medications for the rib fractures. Patient was evaluated by physical therapy and found to be quite weak requiring max assist, this was discussed with family/daughter and she believes patient will be better served at home where she has a small animal caretaker 21/11, home health and physical therapy have had been arranged for home care. Prior to discharge Case discussed with pulmonology, recommend follow-up in 2 weeks with pulmonology outpatient. Avoid strenuous activity. Please follow-up with Dr. Bennett in 1 to 2 weeks Please also follow-up with your primary care doctor Continue taking your home medications as previously prescribed Prescription for [place] 5 mg for pain has been sent to [facility] in [place] continued use of incentive telemetry Home Health: [facility] ([facility]) P:[phone] F:[phone] PCP appointment: Monday11/10/[address] Dolores Wagner [address], [place] [address] Diet: Regular Activity: Fall precautions Followup: Raffaele Bennett MD [ACTIVE - CAN ADMIT] - 1-2 Weeks NONE,NONE [Primary Care Provider] - Time spent managing pt's care (in minutes): 35
--- NOTE | 2023-10-31 14:18 | PN ---
Date of Progress Note: 10/31/2023 Reason For Service: Multiple rib fractures and pneumothorax. Subjective: The patient is doing well with no shortness of breath. Objective: Vital Signs: Shows a temperature is 97, pulse 82, blood pressure is 135/63, O2 sat has b een remaining in the 93%. Lungs: No crepitus. Bilateral breath sounds. Imaging: Chest x-ray shows improvement of the pneumothorax. Plan: Continue medical treatment. WAYNE/AVINASH Voice ID: [id number] Report ID: [id number]
== END 2023-10-31 14:03 | disposition home health service (06) | DRG 200 ==
LOC: ER 10:57 → ERHOLD 15:37 → 3RD-ICU 16:13 → 4TH 10-29 16:06
PROVIDERS: ADMIT Internal Medicine; ATTEND Hospitalist
DX: J93.83 Other pneumothorax (principal); I31.39 Other pericardial effusion (noninflammatory); S22.41XA Multiple fractures of ribs, right side, initial encounter for closed fracture; I10 Essential (primary) hypertension; E78.5 Hyperlipidemia, unspecified; E03.9 Hypothyroidism, unspecified; F41.9 Anxiety disorder, unspecified; G47.00 Insomnia, unspecified; G25.81 Restless legs syndrome; S50.311A Abrasion of right elbow, initial encounter; R29.6 Repeated falls; Z66 Do not resuscitate; Z91.81 History of falling; Z90.13 Acquired absence of bilateral breasts and nipples; Z86.73 Personal history of transient ischemic attack (TIA), and cerebral infarction without residual deficits; Z79.899 Other long term (current) drug therapy; Z87.891 Personal history of nicotine dependence; W06.XXXA Fall from bed, initial encounter; Y93.9 Activity, unspecified; Y92.003 Bedroom of unspecified non-institutional (private) residence as the place of occurrence of the external cause; Y99.9 Unspecified external cause status
CPT/HCPCS: 36415; 70450; 71045; 71250; 72125; 74177; 80053; 81001; 83690; 85025; 96374; 96375; 97110; 97161; 97530; 99285; J1650; J2405; J3535; J7030; Q9967